=== PATIENT | female | born 1955 | race Caucasian/White ===

== ENCOUNTER 2017-04-03 12:15 | Emergency (ER) | payer MEDICARE, MEDICAID ==
--- NOTE | 2017-04-03 13:45 | EDM.PDOC ---
ED HPI GENERAL MEDICAL PROBLEM - General Chief Complaint: Respiratory Problem Stated Complaint: SHORT OF BREATH HEART ISSUES Time Seen by Provider: 04/03/17 13:35 Source of Information: Reports: Patient, Family, RN Notes Reviewed History Limitations: Reports: No Limitations - History of Present Illness INITIAL COMMENTS - FREE TEXT/NARRATIVE: 62-year-old female presents emergency department day complaint of not feeling well has had nausea and vomiting since diarrhea other members of the family are ill she has had some palpitations as well no shortness of breath or chest pain no fevers does have a history of stage III ovarian cancer doing natural pathic therapy - Related Data Allergies Allergy/AdvReac Type Severity Reaction Status Date / Time amoxicillin trihydrate Allergy Cannot Verified 04/03/17 12:42 [From Augmentin] Remember potassium clavulanate Allergy Cannot Verified 04/03/17 12:42 [From Augmentin] Remember prednisone Allergy Cannot Verified 04/03/17 12:42 Remember Sulfa (Sulfonamide Allergy Hallucinati Verified 04/03/17 12:42 Antibiotics) ons ciprofloxacin [From Cipro] AdvReac Intermediate Blurred Verified 04/03/17 12:42 Vision ciprofloxacin HCl AdvReac Intermediate Blurred Verified 04/03/17 12:42 [From Cipro] Vision hydromorphone HCl AdvReac Intermediate Shaking Verified 04/03/17 12:42 [From Dilaudid] metronidazole [From Flagyl] AdvReac Intermediate Shaking Verified 04/03/17 12:42 Metronidazole HCl AdvReac Intermediate Shaking Verified 04/03/17 12:42 [From Flagyl] morphine AdvReac Intermediate Shaking Verified 04/03/17 12:42 Home Meds: Home Meds ALPRAZolam [Xanax] 0.25 mg PO TID PRN 01/27/13 [History] Cetirizine HCl [Zyrtec] 10 mg PO DAILY 01/27/13 [History] Fluticasone/Salmeterol [Advair 100-50] 1 puff INH BID PRN 01/27/13 [History] Lansoprazole [Prevacid] 30 mg PO DAILY 01/27/13 [History] Lisinopril 10 mg PO DAILY 01/27/13 [History] Meclizine [Antivert] 25 mg PO Q6H PRN 01/27/13 [History] Levalbuterol Tartrate [Xopenex HFA] 2 puff INH Q4HR 02/18/14 [History] Calcium Carbonate/Vitamin D3 [Calcium 600-Vit D3 400 Tablet] 1 each PO BEDTIME 09/29/15 [History] Cholecalciferol (Vitamin D3) [Vitamin D3] 10,000 unit PO DAILY 09/29/15 [History ] Cranberry Fruit Concentrate [Cranberry] 450 mg PO DAILY 09/29/15 [History] Vitamin E 1 tab PO DAILY 11/17/15 [History] Fe/FA/Dha/Epa/Fad/Nadh/Be/Mv47 [Enlyte Softgel] 1 cap PO DAILY 04/03/17 [History ] Past Medical History HEENT History: Reports: Allergic Rhinitis Cardiovascular History: Reports: Hypertension Respiratory History: Reports: Asthma, Bronchitis, Recurrent, Pneumonia, Recurrent, Other (See Below) Other Respiratory History: nodules bilateral lungs Gastrointestinal History: Reports: Gastritis, GI Bleed 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: Musculoskeletal History: Reports: Arthritis, Back Pain, Chronic, Fibromyalgia, Neck Pain, Chronic, Osteoarthritis Neurological History: Reports: Vertigo Psychiatric History: Reports: Anxiety, Depression Endocrine/Metabolic History: Reports: Obesity/BMI 30+ Hematologic History: Reports: Anemia Oncologic (Cancer) History: Reports: Ovarian Dermatologic History: Reports: Other (See Below) Other Dermatologic History: rash on top of right foot-biopsy done - Infectious Disease History Infectious Disease History: Reports: Chicken Pox, Measles, Mumps - Past Surgical History HEENT Surgical History: Reports: Laser Surgery Dermatological Surgical History: Reports: Skin Biopsy Social & Family History - Family History HEENT: Reports: Cataract Cardiac: Reports: Bypass, Other (See Below) Other Cardiac Family History: valve replacement Respiratory: Reports: Other (See Below) Other Respiratory Family Hisory: bronchitis GI: Reports: Pancreatitis Musculoskeletal: Reports: Other (See Below) Other Musculoskeletal Family History: ALS Neurological: Reports: Alzheimers Disease, Dementia Psychiatric: Reports: Anxiety, Bipolar, Schizophrenia - Tobacco Use Smoking Status *Q: Never Smoker Second Hand Smoke Exposure: Yes - Caffeine Use Caffeine Use: Reports: None - Alcohol Use Days Per Week of Alcohol Use: 0 - Recreational Drug Use Recreational Drug Use: No ED ROS GENERAL - Review of Systems Review Of Systems: See Below Constitutional: Reports: Weakness HEENT: Reports: No Symptoms Respiratory: Reports: No Symptoms Cardiovascular: Reports: Palpitations GI/Abdominal: Reports: Diarrhea, Nausea, Vomiting : Reports: No Symptoms Musculoskeletal: Reports: No Symptoms Skin: Reports: No Symptoms Neurological: Reports: No Symptoms ED EXAM, GENERAL - Physical Exam Exam: See Below Free Text/Narrative:: General: Female, not in any distress, alert and oriented x3 HEENT: head is atraumatic normocephalic, eyes pupils equal round reactive to light, sclera clear no conjunctivitis appreciated. Ears tympanic membranes clear and seo landmarks and light reflex are present bilaterally canals are clear. Nose no septal deviation, nares are clear, no blood present. Mouth mucosa is moist and pink no erythema or exudate noted in soft palate, tongue is midline uvula is midline, dentition is intact. Neck: Supple no thyromegaly no tracheal deviation. Nodes: Cervical nodes subclavicular nodes nontender no palpable lymphadenopathy noted. Lungs: clear to auscultation bilaterally with symmetrical respirations, no adventitious noise appreciated. CV: Regular rate and rhythm S1 and S2 appreciated no murmurs rubs or gallops noted. Abdomen: Soft, nontender, no palpable masses or organomegaly appreciated, no distention no guarding bowel sounds are present, . Neuro: Cranial nerves II through XII grossly intact Skin: Warm and dry, intact Extremities: No lower extremity edema appreciated, Course - Vital Signs Last Recorded V/S: Last Vital Signs Temp 97.0 F 04/03/17 12:36 Pulse 96 04/03/17 12:36 Resp 18 04/03/17 12:36 BP 152/61 H 04/03/17 12:36 Pulse Ox 100 04/03/17 12:36 - Orders/Labs/Meds Orders: Active Orders 24 hr Category Date Time Status EKG Documentation Completion [RC] ASDIRECTED Care 04/03/17 13:13 Active EKG 12 Lead [EK] Stat Ther 04/03/17 13:13 Ordered Labs: Laboratory Tests 04/03/17 04/03/17 04/03/17 Range/Units 13:55 13:55 14:02 WBC 10.9 (4.5-11.0) K/uL RBC 5.07 (3.30-5.50) M/uL Hgb 14.6 (12.0-15.0) g/dL Hct 44.5 (36.0-48.0) % MCV 88 (80-98) fL MCH 29 (27-31) pg MCHC 33 (32-36) % Plt Count 375 (150-400) K/uL Neut % (Auto) 74 H (36-66) % Lymph % (Auto) 15 L (24-44) % [place] % (Auto) 7 H (2-6) % Eos % (Auto) 5 H (2-4) % Baso % (Auto) 0 (0-1) % Sodium 142 (140-148) mmol/L Potassium 3.8 (3.6-5.2) mmol/L Chloride 105 (100-108) mmol/L Carbon Dioxide 31 (21-32) mmol/L Anion Gap 5.6 (5.0-14.0) mmol/L BUN 18 (7-18) mg/dL Creatinine 0.9 (0.6-1.0) mg/dL Est Cr Clr Drug Dosing 52.93 mL/min Estimated GFR (MDRD) > 60 (>60) Glucose 98 (74-106) mg/dL Calcium 9.5 (8.5-10.1) mg/dL Total Bilirubin 0.6 (0.2-1.0) mg/dL AST 29 (15-37) U/L ALT 39 (12-78) U/L Alkaline Phosphatase 95 (46-116) U/L Total Protein 7.2 (6.4-8.2) g/dL Albumin 3.8 (3.4-5.0) g/dL Globulin 3.4 (2.3-3.5) g/dL Albumin/Globulin Ratio 1.1 L (1.2-2.2) Urine Color Yellow Urine Appearance Clear Urine pH 8.0 (4.5-8.0) Ur Specific [place] 1.015 (1.008-1.030) Urine Protein Negative (NEGATIVE) mg/dL Urine Glucose (UA) Normal (NEGATIVE) mg/dL Urine Ketones Negative (NEGATIVE) mg/dL Urine Occult Blood Negative (NEGATIVE) Urine Nitrite Negative (NEGATIVE) Urine Bilirubin Negative (NEGATIVE) Urine Urobilinogen Normal (NORMAL) mg/dL Ur Leukocyte Esterase Negative (NEGATIVE) Urine RBC 0-5 (0-5) Urine WBC 0-5 (0-5) Ur Epithelial Cells Few Amorphous Sediment Not seen Urine Bacteria Few Urine Mucus Not seen Departure - Departure Time of Disposition: 14:56 Disposition: Home, Self-Care 01 Condition: Fair Clinical Impression: Palpitation - Discharge Information Referrals: Thomas Adame MD [Primary Care Provider] - Forms: ED Department Discharge Additional Instructions: Please followup with your primary care provider in 3-5 days if not better, please call return to the emergency department with worsening of symptoms. - My Orders Last 24 Hours: My Active Orders 04/03/17 13:13 EKG Documentation Completion [RC] ASDIRECTED EKG 12 Lead [EK] Stat - Assessment/Plan Last 24 Hours: My Active Orders 04/03/17 13:13 EKG Documentation Completion [RC] ASDIRECTED EKG 12 Lead [EK] Stat Plan: Assessment Acuity = acute Site and laterality = palpitations complicated in a patient with stage III ovarian cancer Etiology = unclear etiology Manifestations = none Location of injury = Home Lab values = CBC, CMP, urinalysis unremarkable EKG EKG demonstrates normal sinus rhythm there is no atrial enlargement there is no ventricular enlargement there is no axis deviation no T wave inversions I don't appreciate any ST depressions or elevations no Q waves noted good R wave progression Plan I did review lab work EKG results with her she was asymptomatic while in the emergency department plan is discharge to home follow-up primary care 3-5 days for reevaluation Patient was in agreement with the plan all questions were answered, they were instructed to return to the emergency department or call for worsening symptoms. This note was dictated using [employer] voice recognition software please call with any questions.
[2017-04-03 15:20] VITALS: BP 139/79
== END 2017-04-03 15:21 | disposition home or self-care (01) ==
LOC: JP.ED 12:15
DX: R00.2 Palpitations (principal); C56.9 Malignant neoplasm of unspecified ovary; I10 Essential (primary) hypertension; F32.9 Major depressive disorder, single episode, unspecified; Z77.22 Contact with and (suspected) exposure to environmental tobacco smoke (acute) (chronic); Z79.899 Other long term (current) drug therapy; Z88.5 Allergy status to narcotic agent; Z88.1 Allergy status to other antibiotic agents; Z88.2 Allergy status to sulfonamides; Z88.8 Allergy status to other drugs, medicaments and biological substances
CPT/HCPCS: 36415; 80053; 81001; 85025; 93005; 93010; 99284; 99285-25

== ENCOUNTER 2017-08-01 14:13 | Emergency (ER) | payer MEDICARE, MEDICAID ==
--- NOTE | 2017-08-01 15:44 | EDM.PDOC ---
ED HPI GENERAL MEDICAL PROBLEM - General Chief Complaint: General Stated Complaint: VERTIGO,ANKLE EDEMA Time Seen by Provider: 08/01/17 14:50 Source of Information: Reports: Patient, Family History Limitations: Reports: No Limitations - History of Present Illness INITIAL COMMENTS - FREE TEXT/NARRATIVE: 62-year-old female developed lightheadedness and vertigo after standing earlier today, feels off, and is concerned that her blood pressures persistently elevated. She stopped her blood pressure medication about 6 months ago. She has known metastatic ovarian cancer which she has not had treatment other than alternative treatment. She is becoming short of breath more easily, and is also developing some more persistent lower extremity swelling and puffiness. She has an occasional abdominal pain but her appetite has been good and she has not had significant weight loss. Onset: Unknown/Unsure Worsens with: Reports: Other (Activity causes shortness of breath) Associated Symptoms: Reports: Malaise, Shortness of Breath, Weakness, Other ( Vertigo, recurrent). Denies: Confusion, Chest Pain, Cough, Diaphoresis, Fever/ Chills, Headaches, Nausea/Vomiting - Related Data Allergies Allergy/AdvReac Type Severity Reaction Status Date / Time amoxicillin trihydrate Allergy Cannot Verified 08/01/17 14:45 [From Augmentin] Remember potassium clavulanate Allergy Cannot Verified 08/01/17 14:45 [From Augmentin] Remember prednisone Allergy Cannot Verified 08/01/17 14:45 Remember Sulfa (Sulfonamide Allergy Hallucinati Verified 08/01/17 14:45 Antibiotics) ons ciprofloxacin [From Cipro] AdvReac Intermediate Blurred Verified 08/01/17 14:45 Vision ciprofloxacin HCl AdvReac Intermediate Blurred Verified 08/01/17 14:45 [From Cipro] Vision hydromorphone HCl AdvReac Intermediate Shaking Verified 08/01/17 14:45 [From Dilaudid] metronidazole [From Flagyl] AdvReac Intermediate Shaking Verified 08/01/17 14:45 Metronidazole HCl AdvReac Intermediate Shaking Verified 08/01/17 14:45 [From Flagyl] morphine AdvReac Intermediate Shaking Verified 08/01/17 14:45 Home Meds: Home Meds ALPRAZolam [Xanax] 0.25 mg PO TID PRN 01/27/13 [History] Cetirizine HCl [Zyrtec] 10 mg PO DAILY 01/27/13 [History] Fluticasone/Salmeterol [Advair 100-50] 1 puff INH BID PRN 01/27/13 [History] Lansoprazole [Prevacid] 30 mg PO DAILY 01/27/13 [History] Lisinopril 10 mg PO DAILY 01/27/13 [History] Meclizine [Antivert] 25 mg PO Q6H PRN 01/27/13 [History] Levalbuterol Tartrate [Xopenex HFA] 2 puff INH Q4HR 02/18/14 [History] Calcium Carbonate/Vitamin D3 [Calcium 600-Vit D3 400 Tablet] 1 each PO BEDTIME 09/29/15 [History] Cholecalciferol (Vitamin D3) [Vitamin D3] 10,000 unit PO DAILY 09/29/15 [History ] Cranberry Fruit Concentrate [Cranberry] 450 mg PO DAILY 09/29/15 [History] Vitamin E 1 tab PO DAILY 11/17/15 [History] Fe/FA/Dha/Epa/Fad/Nadh/Be/Mv47 [Enlyte Softgel] 1 cap PO DAILY 04/03/17 [History ] Past Medical History HEENT History: Reports: Allergic Rhinitis Cardiovascular History: Reports: Hypertension Respiratory History: Reports: Asthma, Bronchitis, Recurrent, Pneumonia, Recurrent, Other (See Below) Other Respiratory History: nodules bilateral lungs Gastrointestinal History: Reports: Gastritis, GI Bleed 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: Musculoskeletal History: Reports: Arthritis, Back Pain, Chronic, Fibromyalgia, Neck Pain, Chronic, Osteoarthritis Neurological History: Reports: Vertigo Psychiatric History: Reports: Anxiety, Depression Endocrine/Metabolic History: Reports: Obesity/BMI 30+ Hematologic History: Reports: Anemia Oncologic (Cancer) History: Reports: Ovarian Dermatologic History: Reports: Other (See Below) Other Dermatologic History: rash on top of right foot-biopsy done - Infectious Disease History Infectious Disease History: Reports: Chicken Pox, Measles, Mumps - Past Surgical History HEENT Surgical History: Reports: Laser Surgery Dermatological Surgical History: Reports: Skin Biopsy Social & Family History - Family History HEENT: Reports: Cataract Cardiac: Reports: Bypass, Other (See Below) Other Cardiac Family History: valve replacement Respiratory: Reports: Other (See Below) Other Respiratory Family Hisory: bronchitis GI: Reports: Pancreatitis Musculoskeletal: Reports: Other (See Below) Other Musculoskeletal Family History: ALS Neurological: Reports: Alzheimers Disease, Dementia Psychiatric: Reports: Anxiety, Bipolar, Schizophrenia - Tobacco Use Smoking Status *Q: Never Smoker Second Hand Smoke Exposure: No - Caffeine Use Caffeine Use: Reports: Coffee - Alcohol Use Days Per Week of Alcohol Use: 0 - Recreational Drug Use Recreational Drug Use: No ED ROS GENERAL - Review of Systems Review Of Systems: See Below Constitutional: Reports: Malaise, Weakness. Denies: Fever, Chills HEENT: Reports: Vertigo Respiratory: Reports: Shortness of Breath (Especially with activity). Denies: Cough Cardiovascular: Reports: Edema (Has developed some persistent lower extremity swelling over the past several months), Lightheadedness. Denies: Chest Pain, Palpitations GI/Abdominal: Reports: Abdominal Pain Skin: Reports: No Symptoms. Denies: Bruising Neurological: Reports: Dizziness, Other (Vertigo). Denies: Headache, Seizure, Trouble Speaking, Change in Speech Psychiatric: Reports: No Symptoms ED EXAM, GENERAL - Physical Exam Exam: See Below Exam Limited By: No Limitations General Appearance: Alert, No Apparent Distress Eye Exam: Bilateral Eye: EOMI, Other (No nystagmus) Ears: Normal TMs Throat/Mouth: Normal Inspection Respiratory/Chest: No Respiratory Distress, Lungs Clear Cardiovascular: Regular Rate, Rhythm GI/Abdominal: Normal Bowel Sounds, Soft, Non-Tender Neurological: Alert, Oriented Psychiatric: Normal Affect, Normal Mood Skin Exam: Warm, Dry Course - Vital Signs Last Recorded V/S: Last Vital Signs Temp 97.4 F 08/01/17 14:32 Pulse 71 08/01/17 18:42 Resp 14 08/01/17 18:42 BP 174/87 H 08/01/17 18:42 Pulse Ox 97 08/01/17 18:42 - Orders/Labs/Meds Labs: Laboratory Tests 08/01/17 08/01/17 08/01/17 Range/Units 15:27 15:27 15:27 WBC 6.9 (4.5-11.0) K/uL RBC 4.76 (3.30-5.50) M/uL Hgb 13.6 (12.0-15.0) g/dL Hct 42.0 (36.0-48.0) % MCV 88 (80-98) fL MCH 29 (27-31) pg MCHC 32 (32-36) % Plt Count 356 (150-400) K/uL Neut % (Auto) 60 (36-66) % Lymph % (Auto) 25 (24-44) % [place] % (Auto) 8 H (2-6) % Eos % (Auto) 6 H (2-4) % Baso % (Auto) 1 (0-1) % D-Dimer, Quantitative 592 H (0.0-400.0) ng/mL Sodium 145 (140-148) mmol/L Potassium 4.3 (3.6-5.2) mmol/L Chloride 107 (100-108) mmol/L Carbon Dioxide 28 (21-32) mmol/L Anion Gap 10.3 (5.0-14.0) mmol/L BUN 15 (7-18) mg/dL Creatinine 1.0 (0.6-1.0) mg/dL Est Cr Clr Drug Dosing 47.63 mL/min Estimated GFR (MDRD) 56 L (>60) Glucose 94 (74-106) mg/dL Calcium 9.1 (8.5-10.1) mg/dL Total Bilirubin 0.4 (0.2-1.0) mg/dL AST 21 (15-37) U/L ALT 24 (12-78) U/L Alkaline Phosphatase 98 (46-116) U/L Total Protein 6.7 (6.4-8.2) g/dL Albumin 3.9 (3.4-5.0) g/dL Globulin 2.8 (2.3-3.5) g/dL Albumin/Globulin Ratio 1.4 (1.2-2.2) Urine Color Urine Appearance Urine pH (4.5-8.0) Ur Specific [place] (1.008-1.030) Urine Protein (NEGATIVE) mg/dL Urine Glucose (UA) (NEGATIVE) mg/dL Urine Ketones (NEGATIVE) mg/dL Urine Occult Blood (NEGATIVE) Urine Nitrite (NEGATIVE) Urine Bilirubin (NEGATIVE) Urine Urobilinogen (NORMAL) mg/dL Ur Leukocyte Esterase (NEGATIVE) Urine RBC (0-5) Urine WBC (0-5) Ur Epithelial Cells Amorphous Sediment Urine Bacteria Urine Mucus 08/01/17 Range/Units 15:45 WBC (4.5-11.0) K/uL RBC (3.30-5.50) M/uL Hgb (12.0-15.0) g/dL Hct (36.0-48.0) % MCV (80-98) fL MCH (27-31) pg MCHC (32-36) % Plt Count (150-400) K/uL Neut % (Auto) (36-66) % Lymph % (Auto) (24-44) % [place] % (Auto) (2-6) % Eos % (Auto) (2-4) % Baso % (Auto) (0-1) % D-Dimer, Quantitative (0.0-400.0) ng/mL Sodium (140-148) mmol/L Potassium (3.6-5.2) mmol/L Chloride (100-108) mmol/L Carbon Dioxide (21-32) mmol/L Anion Gap (5.0-14.0) mmol/L BUN (7-18) mg/dL Creatinine (0.6-1.0) mg/dL Est Cr Clr Drug Dosing mL/min Estimated GFR (MDRD) (>60) Glucose (74-106) mg/dL Calcium (8.5-10.1) mg/dL Total Bilirubin (0.2-1.0) mg/dL AST (15-37) U/L ALT (12-78) U/L Alkaline Phosphatase (46-116) U/L Total Protein (6.4-8.2) g/dL Albumin (3.4-5.0) g/dL Globulin (2.3-3.5) g/dL Albumin/Globulin Ratio (1.2-2.2) Urine Color Yellow Urine Appearance Clear Urine pH 8.0 (4.5-8.0) Ur Specific [place] 1.010 (1.008-1.030) Urine Protein Negative (NEGATIVE) mg/dL Urine Glucose (UA) Normal (NEGATIVE) mg/dL Urine Ketones Negative (NEGATIVE) mg/dL Urine Occult Blood Negative (NEGATIVE) Urine Nitrite Negative (NEGATIVE) Urine Bilirubin Negative (NEGATIVE) Urine Urobilinogen Normal (NORMAL) mg/dL Ur Leukocyte Esterase Negative (NEGATIVE) Urine RBC 0-5 (0-5) Urine WBC 0-5 (0-5) Ur Epithelial Cells Rare Amorphous Sediment Not seen Urine Bacteria Not seen Urine Mucus Not seen Meds: Medications Discontinued Medications Generic Name Dose Route Start Last Admin Trade Name Freq PRN Reason Stop Dose Admin Sodium Chloride 1,000 mls @ 500 mls/hr 08/01/17 16:45 08/01/17 16:46 Normal Saline IV 500 mls/hr ASDIRECTED CHRISTINA Administration Sodium Chloride 80 mls @ 3 mls/sec 08/01/17 16:45 08/01/17 17:27 Normal Saline IV 3 mls/sec ASDIRECTED CHRISTINA Administration Iopamidol 100 ml 08/01/17 16:45 08/01/17 17:27 Isovue-300 (61%) IV 100 ml . DIRECTED CHRISTINA Administration Sodium Chloride 10 ml 08/01/17 16:38 08/01/17 17:27 Saline Flush FLUSH 10 ml ASDIRECTED PRN Administration Keep Vein Open - Re-Assessments/Exams Free Text/Narrative Re-Assessment/Exam: 08/02/17 18:07 CBC and CMP along with UA were obtained. All were normal. This was followed with a CT of the abdomen and pelvis and chest with IV contrast which unfortunately showed an expanding tumor burden load in the abdomen with also possible primary tumor in the lung. This was all discussed with the patient. She is going to discuss her options with Dr. Adame next week. Departure - Departure Time of Disposition: 19:08 Disposition: Home, Self-Care 01 Condition: Fair Clinical Impression: Primary cancer of ovary with widespread metastatic disease Qualifiers: Laterality: unspecified laterality Qualified Code(s): C56.9 - Malignant neoplasm of unspecified ovary Hypertension Qualifiers: Hypertension type: essential hypertension Qualified Code(s): I10 - Essential ( primary) hypertension - Discharge Information Instructions: Hypertension, [id number] Referrals: Thomas Adame MD [Primary Care Provider] - Forms: ED Department Discharge Care Plan Goals: Consider starting your blood pressure medicine at 5 mg daily, avoid extra salt in your diet, and follow up with Dr. Adame for any further medication recommendations.
[2017-08-01] MEDS ORDERED: Sodium Chloride 0.9% 10 ML Syringe FLUSH PRN (16:38)
[2017-08-01] MEDS ORDERED: Sodium Chloride 0.9% 80 ML IV SCH (16:45)
[2017-08-01] MEDS ORDERED: Sodium Chloride 0.9% 1,000 ML IV SCH (16:45)
[2017-08-01] MEDS ORDERED: Iopamidol 612 MG/ML 100 ML Bottle IV SCH (16:45)
[2017-08-01 19:41] VITALS: BP 174/87
== END 2017-08-01 19:09 | disposition home or self-care (01) ==
LOC: JP.ED 14:13
DX: C56.9 Malignant neoplasm of unspecified ovary (principal); I10 Essential (primary) hypertension; Z88.8 Allergy status to other drugs, medicaments and biological substances; Z88.1 Allergy status to other antibiotic agents; Z88.2 Allergy status to sulfonamides; Z88.5 Allergy status to narcotic agent; Z79.899 Other long term (current) drug therapy
CPT/HCPCS: 36415; 71260; 74177; 80053; 81001; 85025; 85379; 96360; 96361; 99284; J7030; J7040; J7050; Q9967

== ENCOUNTER 2017-11-29 12:36 | Emergency (ER) | payer MEDICARE, MEDICAID ==
[2017-11-29] MEDS ORDERED: Sodium Chloride 0.9% 10 ML Syringe FLUSH PRN ×2 (13:59→14:05)
[2017-11-29] MEDS ORDERED: Sodium Chloride 0.9% 1,000 ML IV SCH (14:00)
[2017-11-29] MEDS ORDERED: Ondansetron 4 MG/2 ML SDV IVPUSH ONE (14:01)
[2017-11-29] MEDS ORDERED: Iopamidol 612 MG/ML 100 ML Bottle IV PRN (14:05)
[2017-11-29] MEDS ORDERED: Sodium Chloride 0.9% 80 ML IV ONE (14:05)
--- NOTE | 2017-11-29 14:07 | EDM.PDOC ---
ED HPI GENERAL MEDICAL PROBLEM - General Chief Complaint: General Stated Complaint: STOMACH PROBLEMS, JAW PAIN, HIGH BP Time Seen by Provider: 11/29/17 13:45 Source of Information: Reports: Patient, Family - History of Present Illness INITIAL COMMENTS - FREE TEXT/NARRATIVE: Buffy presents today for complaints of worsening abdominal pain for 2 days. She reports a history of ovarian cancer with current treatment of Essiac tea and abdominal pain. She reports increased pain and stools that are lose for two days. She also states the pain is significantly worse after defecating. She complains of chills off and on. She reports she was also told she has a lung mass. Abdominal Pain Score (Numeric/FACES): 7 - Related Data Allergies Allergy/AdvReac Type Severity Reaction Status Date / Time amoxicillin trihydrate Allergy Cannot Verified 11/29/17 13:08 [From Augmentin] Remember potassium clavulanate Allergy Cannot Verified 11/29/17 13:08 [From Augmentin] Remember prednisone Allergy Cannot Verified 11/29/17 13:08 Remember Sulfa (Sulfonamide Allergy Hallucinati Verified 11/29/17 13:08 Antibiotics) ons ciprofloxacin [From Cipro] AdvReac Intermediate Blurred Verified 11/29/17 13:08 Vision ciprofloxacin HCl AdvReac Intermediate Blurred Verified 11/29/17 13:08 [From Cipro] Vision hydromorphone HCl AdvReac Intermediate Shaking Verified 11/29/17 13:08 [From Dilaudid] metronidazole [From Flagyl] AdvReac Intermediate Shaking Verified 11/29/17 13:08 Metronidazole HCl AdvReac Intermediate Shaking Verified 11/29/17 13:08 [From Flagyl] morphine AdvReac Intermediate Shaking Verified 11/29/17 13:08 Home Meds: Home Meds ALPRAZolam [Xanax] 0.25 mg PO TID PRN 01/27/13 [History] Cetirizine HCl [Zyrtec] 10 mg PO DAILY 01/27/13 [History] Fluticasone/Salmeterol [Advair 100-50] 1 puff INH BID PRN 01/27/13 [History] Lansoprazole [Prevacid] 30 mg PO DAILY 01/27/13 [History] Lisinopril 5 mg PO DAILY 01/27/13 [History] Levalbuterol Tartrate [Xopenex HFA] 2 puff INH Q4HR 02/18/14 [History] Calcium Carbonate/Vitamin D3 [Calcium 600-Vit D3 400 Tablet] 1 each PO BEDTIME 09/29/15 [History] Cholecalciferol (Vitamin D3) [Vitamin D3] 10,000 unit PO DAILY 09/29/15 [History ] Cranberry Fruit Concentrate [Cranberry] 450 mg PO DAILY 09/29/15 [History] *B6 100 mg PO DAILY 11/29/17 [History] Marguerite Root [Marguerite] 250 mg PO DAILY 11/29/17 [History] Potassium Gluconate [Potassium] 99 mg PO DAILY 11/29/17 [History] #92/Iron/FA #8/Ps-Dha [Enbrace Hr Softgel] 1 tab PO DAILY 11/29/17 [ History] Past Medical History HEENT History: Reports: Allergic Rhinitis, Impaired Vision Cardiovascular History: Reports: Hypertension Respiratory History: Reports: Asthma, Bronchitis, Recurrent, Pneumonia, Recurrent, Other (See Below) Other Respiratory History: nodules bilateral lungs Gastrointestinal History: Reports: Chronic Constipation, Gastritis, GI Bleed [employer] History: Reports: Musculoskeletal History: Reports: Arthritis, Back Pain, Chronic, Fibromyalgia, Neck Pain, Chronic, Osteoarthritis Neurological History: Reports: Vertigo Psychiatric History: Reports: Anxiety, Depression, PTSD Endocrine/Metabolic History: Reports: Obesity/BMI 30+ Hematologic History: Reports: Anemia Oncologic (Cancer) History: Reports: Lung, Ovarian, Other (See Below) Other Oncologic History: lining of stomach Dermatologic History: Reports: Other (See Below) Other Dermatologic History: rash on top of right foot-biopsy done. rash on back of arms - Infectious Disease History Infectious Disease History: Reports: Chicken Pox, Influenza, Measles, Mononucleosis, Mumps - Past Surgical History HEENT Surgical History: Reports: Laser Surgery, Other (See Below) Other HEENT Surgeries/Procedures: lumpectomy on left side below ear GI Surgical History: Reports: Cholecystectomy Dermatological Surgical History: Reports: Skin Biopsy Social & Family History - Family History HEENT: Reports: Cataract Cardiac: Reports: Bypass, Other (See Below) Other Cardiac Family History: valve replacement Respiratory: Reports: Other (See Below) Other Respiratory Family Hisory: bronchitis GI: Reports: Pancreatitis Musculoskeletal: Reports: Other (See Below) Other Musculoskeletal Family History: ALS Neurological: Reports: Alzheimers Disease, Dementia Psychiatric: Reports: Anxiety, Bipolar, Schizophrenia - Tobacco Use Smoking Status *Q: Never Smoker - Caffeine Use Caffeine Use: Reports: None - Recreational Drug Use Recreational Drug Use: No ED ROS GENERAL - Review of Systems Review Of Systems: See Below Constitutional: Reports: Chills. Denies: Fever, Malaise, Weakness HEENT: Reports: No Symptoms Respiratory: Denies: Shortness of Breath, Wheezing, Cough, Sputum, Hemoptysis Cardiovascular: Reports: No Symptoms Endocrine: Reports: No Symptoms GI/Abdominal: Reports: Abdominal Pain, Constipation, Diarrhea, Distension, Nausea. Denies: Black Stool, Bloody Stool, Difficulty Swallowing, Flatus, Vomiting : Reports: No Symptoms Musculoskeletal: Reports: No Symptoms Skin: Reports: No Symptoms Neurological: Reports: No Symptoms Psychiatric: Reports: No Symptoms Hematologic/Lymphatic: Reports: No Symptoms Immunologic: Reports: No Symptoms ED EXAM, GENERAL - Physical Exam Exam: See Below Free Text/Narrative:: Buffy is an alert and oriented 62 year old female presenting with complaints of worsening abdominal pain for two days with more liquid stools. She has a history of ovarian cancer that was diagnosed July,. 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 Exam Limited By: No Limitations General Appearance: WD/WN, Mild Distress Eye Exam: Bilateral Eye: EOMI, Normal Inspection, PERRL Ears: Normal External Exam, Normal Canal, Hearing Grossly Normal, Normal TMs Ear Exam: Bilateral Ear: Auricle Normal, Canal Normal, TM normal Nose: Normal Inspection, Normal Mucosa, No Blood Throat/Mouth: Normal Inspection, Normal Lips, Normal Teeth, Normal Gums, Normal Oropharynx, Normal Voice, No Airway Compromise Head: Atraumatic, Normocephalic Neck: Normal Inspection, Supple, Non-Tender, Full Range of Motion. No: Lymphadenopathy (R), Lymphadenopathy (L) Respiratory/Chest: No Respiratory Distress, Normal Breath Sounds, No Accessory Muscle Use, Chest Non-Tender, Other (Breath sounds decreased bilaterally) Cardiovascular: Normal Peripheral Pulses, Regular Rate, Rhythm, No Gallop, No Murmur, No Rub, Other (1+ edema bilateral lower extremities. ) Peripheral Pulses: 2+: Radial (L), Radial (R), Dorsalis Pedis (L), Dorsalis Pedis (R) GI/Abdominal: Soft, No Distention, Guarding, Rebound, Tender, Other (Decreased bowel sounds, tenderness, guarding and rebound with palpation of LUQ, LLQ, RLQ. ) Back Exam: Normal Inspection, Full Range of Motion. No: CVA Tenderness (R), CVA Tenderness (L) Extremities: Normal Inspection, Normal Range of Motion, Non-Tender, Normal Capillary Refill, Other (Pedal edema bilateral 1+) Neurological: Alert, Oriented, CN II-XII Intact, Normal Cognition, Normal Gait, Normal Reflexes, No Motor/Sensory Deficits Psychiatric: Normal Affect, Normal Mood Skin Exam: Warm, Dry, Intact, Normal Color, No Rash Lymphatic: No Adenopathy Course - Vital Signs Last Recorded V/S: Last Vital Signs Temp 35.9 C 11/29/17 13:17 Pulse 74 11/29/17 13:46 Resp 16 11/29/17 13:46 BP 161/79 H 11/29/17 15:07 Pulse Ox 95 11/29/17 15:07 - Orders/Labs/Meds Orders: Active Orders 24 hr Category Date Time Status UA W/MICROSCOPIC [URIN] Stat Lab 11/29/17 13:59 Ordered Saline Lock Insert [OM.PC] Routine Oth 11/29/17 13:59 Ordered Labs: Laboratory Tests 11/29/17 11/29/17 11/29/17 Range/Units 13:59 14:12 14:12 WBC 7.3 (4.5-11.0) K/uL RBC 4.75 (3.30-5.50) M/uL Hgb 13.7 (12.0-15.0) g/dL Hct 42.3 (36.0-48.0) % MCV 89 (80-98) fL MCH 29 (27-31) pg MCHC 32 (32-36) % Plt Count 365 (150-400) K/uL Neut % (Auto) 56 (36-66) % Lymph % (Auto) 31 (24-44) % [place] % (Auto) 7 H (2-6) % Eos % (Auto) 6 H (2-4) % Baso % (Auto) 1 (0-1) % Sodium 143 (140-148) mmol/L Potassium 4.3 (3.6-5.2) mmol/L Chloride 104 (100-108) mmol/L Carbon Dioxide 30 (21-32) mmol/L Anion Gap 9.3 (5.0-14.0) mmol/L BUN 14 (7-18) mg/dL Creatinine 1.0 (0.6-1.0) mg/dL Est Cr Clr Drug Dosing 47.63 mL/min Estimated GFR (MDRD) 56 L (>60) Glucose 112 H (74-106) mg/dL Calcium 9.4 (8.5-10.1) mg/dL Total Bilirubin 0.3 (0.2-1.0) mg/dL AST 23 (15-37) U/L ALT 27 (12-78) U/L Alkaline Phosphatase 98 (46-116) U/L C-Reactive Protein 0.71 H (0.0-0.3) mg/dL Total Protein 6.7 (6.4-8.2) g/dL Albumin 3.3 L (3.4-5.0) g/dL Globulin 3.4 (2.3-3.5) g/dL Albumin/Globulin Ratio 1.0 L (1.2-2.2) Urine Color Yellow Urine Appearance Cloudy Urine pH 8.0 (4.5-8.0) Ur Specific [place] 1.010 (1.008-1.030) Urine Protein Negative (NEGATIVE) mg/dL Urine Glucose (UA) Normal (NEGATIVE) mg/dL Urine Ketones Negative (NEGATIVE) mg/dL Urine Occult Blood Negative (NEGATIVE) Urine Nitrite Negative (NEGATIVE) Urine Bilirubin Negative (NEGATIVE) Urine Urobilinogen Normal (NORMAL) mg/dL Ur Leukocyte Esterase Negative (NEGATIVE) Urine RBC 0-5 (0-5) Urine WBC 0-5 (0-5) Ur Epithelial Cells Moderate Amorphous Sediment Few Urine Bacteria Few Urine Mucus Few Urine Other See note Patient lab work reviewed, noted casts in UA. Meds: Medications Discontinued Medications Generic Name Dose Route Start Last Admin Trade Name Freq PRN Reason Stop Dose Admin Sodium Chloride 1,000 mls @ 150 mls/hr 11/29/17 14:00 11/29/17 13:59 Normal Saline IV 150 mls/hr ASDIRECTED CHRISTINA Administration Sodium Chloride 80 mls @ 3 mls/sec 11/29/17 14:05 11/29/17 14:46 Normal Saline IV 11/29/17 14:06 3 mls/sec ONETIME ONE Administration Iopamidol 100 ml 11/29/17 14:05 11/29/17 14:47 Isovue-300 (61%) IV 100 ml . DIRECTED PRN Administration RADIOLOGY EXAM Ondansetron HCl 4 mg 11/29/17 14:01 11/29/17 14:08 Zofran IVPUSH 11/29/17 14:02 4 mg ONETIME ONE Administration Sodium Chloride 10 ml 11/29/17 13:59 11/29/17 14:00 Saline Flush FLUSH 10 ml ASDIRECTED PRN Administration Keep Vein Open Sodium Chloride 10 ml 11/29/17 14:05 11/29/17 14:47 Saline Flush FLUSH 10 ml ONETIME PRN Administration PER RADIOLOGY PROTOCOL - Radiology Interpretation CT Results Date: 11/29/17 (CT chest, abdomen, pelvis with IV contrast shows stable right apical lung mass, stable pulmonary nodule in the left lower lobe, persistent ascites with increasing carcinomatosis in the mesentery and omentum. Enlarging cystic masses in the adnexal regions bilaterally consistent with patient's history of metastatic ovarian carcinoma. ) - Re-Assessments/Exams Free Text/Narrative Re-Assessment/Exam: 11/29/17 16:[address] report reviewed with her and her daughter, all her questions answered. Buffy will be discharged to home with zofran and tramadol. Patient desires to continue with her current plan of treatment with natural herbals, tea. Departure - Departure Time of Disposition: 16:11 Disposition: Home, Self-Care 01 Condition: Fair Clinical Impression: Primary cancer of ovary with widespread metastatic disease Qualifiers: Laterality: unspecified laterality Qualified Code(s): C56.9 - Malignant neoplasm of unspecified ovary - Discharge Information *PRESCRIPTION DRUG MONITORING PROGRAM REVIEWED*: Yes *COPY OF PRESCRIPTION DRUG MONITORING REPORT IN PATIENT BETSY: Not Applicable Instructions: Abdominal Pain, Adult, [id number] Referrals: PCP,None [Primary Care Provider] - Forms: ED Department Discharge Additional Instructions: You have been evaluated and treated in the emergency room for worsening abdominal pain. CT scan report reviewed with noted ascites, increasing cancer to the mesentery and omentum and to the ovaries. Take docusate sodium for stool softener. You can also take miralax as directed every three days without a BM to encourage movement of bowels. Take ondansetron 4mg PO three times a day as needed for nausea. Take tramadol 25 mg PO three times a day as needed for pain. Keep yourself hydrated. Follow up with your hotel room attendant and Dr. Adame in the next 7 to 10 days. Return for worsening, fever, or other concerns. - My Orders Last 24 Hours: My Active Orders 11/29/17 13:59 UA W/MICROSCOPIC [URIN] Stat Saline Lock Insert [OM.PC] Routine - Assessment/Plan Last 24 Hours: My Active Orders 11/29/17 13:59 UA W/MICROSCOPIC [URIN] Stat Saline Lock Insert [OM.PC] Routine Assessment:: Primary cancer of ovary with widespread metastatic disease. Plan: Patient evaluated and treated in the emergency room for worsening abdominal pain. CT scan report reviewed with noted ascites, increasing cancer to the mesentery and omentum and to the ovaries. Take docusate sodium for stool softener. She can also take miralax as directed every three days without a BM to encourage movement of bowels. Take ondansetron 4mg PO three times a day as needed for nausea. Take tramadol 25 mg PO three times a day as needed for pain. Keep hydrated. Follow up with hotel room attendant and Dr. Adame in the next 7 to 10 days. Return for worsening, fever, or other concerns.
[2017-11-29 15:07] VITALS: BP 161/79
--- NOTE | 2017-11-29 15:17 | CT ---
Chest Abdomen Pelvis w Cont CLINICAL HISTORY: Ovarian carcinoma with metastasis TECHNIQUE: Transverse scans were obtained from the thoracic inlet to the floor the pelvis with IV con trast enhancement. Auto dosage reduction and iterative reconstruction techniques employed. COMPARISONS: 08/01/2017 FINDINGS: Patient has a known right apical mass which is similar in size and configuration to the katie or study. There is a small groundglass opacity in the superior segment of the left upper lobe. There is a persistent 1.4 x 1.0 cm solid nodule in the left lower lobe. This is unchanged since prior study no medial spinal mass or suspicious adenopathy is identified. The liver contains some metastatic imp lants on the liver capsule in the lower portion of the right lobe posteriorly. These have increased i n size slightly since the prior study. The spleen has a normal size and shape. The gallbladder has be en removed. There is some ascitic fluid in the abdomen similar to the prior study. There are diffuse metastatic implants the throughout the mesentery particularly the mesocolon and omentum. There is a enlarging cystic mass in the right adnexal region measuring 5.5 x 6.8 cm. There are some c alcification in the cyst olivia. There is a 8.5 x 10.8 x 9.0 cm complex cystic mass in the left adnexa l region. This also shows a moderate increase in size since prior study. The bladder is displaced ant eriorly and to the right. Kidneys are free of mass or hydronephrosis. The visualized ureters have a normal course and caliber. IMPRESSION: Stable right apical lung mass Stable pulmonary nodule in the left lower lobe. Persistent ascites with increasing carcinomatosis in the mesentery and omentum Enlarging cystic masses in the adnexal regions bilaterally consistent with patient's history of metas tatic ovarian carcinoma
== END 2017-11-29 16:35 | disposition home or self-care (01) ==
LOC: JP.ED 12:36
DX: C56.9 Malignant neoplasm of unspecified ovary (principal); I10 Essential (primary) hypertension; J45.909 Unspecified asthma, uncomplicated; F41.9 Anxiety disorder, unspecified; F32.9 Major depressive disorder, single episode, unspecified; Z88.1 Allergy status to other antibiotic agents; Z88.2 Allergy status to sulfonamides; Z79.899 Other long term (current) drug therapy
CPT/HCPCS: 36415; 71260; 74177; 80053; 81001; 85025; 86140; 96374; 99284; J2405; J7030; J7050; Q9967